=== PATIENT | female | born 1995 | race Caucasian/White ===

== ENCOUNTER 2024-05-08 16:37 | Outpatient (CLI) | payer OTHER, SELFPAY ==
--- NOTE | 2024-05-08 17:04 | PM.OBTRLD ---
Visit Information Visit Information Date of evaluation: 05/08/24 Primary OB Provider: Charity Alonso On-call OB Provider: Charity Alonso Reason for Evaluation: Yes rupture of membranes Comments/Additional reasons for admission: July is a 29 year old at 26w1d. Fell on buttocks stairs yesterday at 1930. Baby has been moving well. No bleeding, changes in vaginal discharge color, but she has been feeling more discharge suddenly so concerned her water broke, and is here to get checked out. Otherwise she has no complaints. Vital Signs Vital Signs: BP 127/67 HR 93 bpm Temp: 36.3 C [facility] Medical History (Updated 05/15/24 @ 17:20 by Charity Alonso CNM, [place]) Kidney stone complicating Pyelonephritis Chronic UTI (urinary tract infection) Surgical History (Updated 05/08/24 @ 17:17 by Charity Alonso CNM, [place]) H/O dilation and curettage H/O lithotripsy Social History (Updated 05/08/24 @ 17:21 by Charity Alonso CNM, [place]) marital status: number of children: 2 household members: spouse and children lives independently: Yes housing: house seatbelt use: always do you feel safe at home: Yes Smoking Status: Never smoker alcohol intake: former substance use type: does not use well-balanced diet: daily or most days daily servings fruits/ve-4 Type(s) of exercise: independent ambulation and irregular exercise Review of Systems Review of Systems Narrative: as mentioned in HPI Evaluation Evaluation Baseline heart rate: 150 Variability: Moderate (11-25) monitor accelerations: Present Monitor Decelerations: Absent Contraction Frequency (minutes): 0 Category of Tracing: Appropriate for gestational age Diagnosis, Plan/Disposition Final Diagnosis (1) NST (non-stress test) reactive: Status: Acute (2) Supervision of normal in third trimester: Status: Acute (3) Intact amniotic membranes: Status: Acute Plan/Disposition Plan: 1. Amnisure done to confirm NOT ruptured. 2. NST performed. 3. Discharge home with precautions, when to call.
== END 2024-05-08 17:49 | disposition home or self-care (01) ==
LOC: LABOR 17:15 → OB 05-09 06:39
PROVIDERS: Referring Provider Advanced Practice Midwife; Visit Provider Advanced Practice Midwife
DX: Z03.71 Encounter for suspected problem with amniotic cavity and membrane ruled out (principal); O26.892 Other specified pregnancy related conditions, second trimester; W18.30XA Fall on same level, unspecified, initial encounter; Z3A.26 26 weeks gestation of pregnancy
CPT/HCPCS: 59025; 84112; G0378; G0379

== ENCOUNTER 2024-10-10 04:05 | Emergency (ER) | payer OTHER, SELFPAY ==
[2024-10-10 04:15] VITALS: BP 123/71; PULSE 78; RESP 16; TEMP 36.9; O2SAT 96
--- NOTE | 2024-10-10 05:52 | PC.NURSE ---
See downtime form for complete patient care flowsheet.
--- NOTE | 2024-10-10 05:55 | ED.ABDPAIN ---
HPI - Abdominal Pain General Chief Complaint: Abdominal Pain Stated Complaint: abdominal pain Time Seen by Provider: 10/10/24 05:54 Source: patient Mode of arrival: Ambulatory History of Present Illness HPI narrative: 29-year-old female patient, otherwise healthy, who complains of moderate to severe epigastric pain that awoke her 1 hour before coming to the ER. She had nausea but no vomiting. No previous symptoms like this. Previous surgeries include laparoscopy for suspected ectopic and D and C to complete a miscarriage. Currently feels better after taking some type of wwqc-aiv-qzhgsls remedies at home which she says was a digestive enzyme. Related Data Allergies Allergy/AdvReac Type Severity Reaction Status Date / Time No Known Drug Allergies Allergy Verified 10/10/24 05:48 Review of Systems Review of Systems ROS Unobtainable: All systems reviewed & are unremarkable except as noted in HPI and below Gastrointestinal Gastrointestinal: Reports as per HPI Patient History Medical History (Updated 10/10/24 @ 05:59 by Kimo Weiss MD) Kidney stone complicating Pyelonephritis Chronic UTI (urinary tract infection) Surgical History (Updated 05/08/24 @ 17:17 by Charity Alonso CNM, [place]) H/O dilation and curettage H/O lithotripsy Social History (Updated 05/08/24 @ 17:21 by Charity Alonso CNM, [place]) marital status: number of children: 2 household members: spouse and children lives independently: Yes housing: house seatbelt use: always do you feel safe at home: Yes alcohol intake: former substance use type: does not use well-balanced diet: daily or most days daily servings fruits/ve-4 Type(s) of exercise: independent ambulation and irregular exercise Exam Initial Vital Signs Initial Vital Signs: Vital Signs Temperature 98.5 F 10/10/24 04:15 Pulse Rate 78 10/10/24 04:15 Respiratory Rate 16 10/10/24 04:15 Blood Pressure 123/71 10/10/24 04:15 Pulse Oximetry 96 10/10/24 04:15 Oxygen Delivery Method Room Air 10/10/24 04:15 Const General: cooperative, healthy appearing, comfortable, well developed and No acute distress Resp Effort & Inspection: normal respiratory effort Auscultation: clear to auscultation bilaterally Cardio Rate: regular rate Rhythm: regular rhythm GI Other: Mild epigastric tenderness but no rebound or guarding. Positive bowel sounds and no distention or masses. Course Orders Ordered: ED Orders 10/10/24 05:00 Complete Blood Count AUTO DIFF Stat Comprehensive Metabolic Panel Stat Lipase Stat Vital Signs Vital signs: Vital Signs - 8 hr 10/10/24 04:15 Temperature 98.5 F Pulse Rate 78 Respiratory Rate 16 Blood Pressure 123/71 Pulse Oximetry 96 Oxygen Delivery Method Room Air MDM - Abdominal Pain Lab Data 10/10/24 05:00 10/10/24 05:00 Labs: Lab Results 10/10/24 Range/Units 05:00 WBC 5.1 (4.5-11.0) X10^3/uL RBC 4.73 (4.0-5.2) X10^6/uL Hgb 13.7 (12.0-16.0) g/dL Hct 40.7 (36-46) % MCV 86.2 (80-100) fL MCH 28.9 (26-34) PG MCHC 33.6 (30-36) % RDW 13.2 (11.6-14.8) % Plt Count 172 (150-400) X10^3/uL Neut % (Auto) 55.4 (50-75) % Lymph % (Auto) 26.2 (25-40) % Haakon % (Auto) 6.0 (3-14) % Eos % (Auto) 11.1 H (2-4) % Baso % (Auto) 1.3 (0-2) % Neut # (Auto) 2800 (0901-0920) /uL Lymph # (Auto) 1300 (7625-6607) /uL Haakon # (Auto) 300 (0-900) /uL Eos # (Auto) 600 H (0-450) /uL Baso # (Auto) 100 (0-100) /uL Sodium 137 (137-145) mmol/L Potassium 3.8 (3.4-5.1) mmol/L Chloride 105 (98-107) mmol/L Carbon Dioxide 23 (22-32) mmol/L BUN 27 H (7-17) mg/dL Creatinine 1.01 (0.52-1.04) mg/dL Estimated GFR > 60 (>60) mL/min BUN/Creatinine Ratio 26.7 H (6-22) Glucose 96 (70-99) mg/dL Calcium 9.0 (8.4-10.2) mg/dL Total Bilirubin 0.4 (0.2-1.3) mg/dL AST 36 (14-36) IU/L ALT 29 (<35) IU/L Alkaline Phosphatase 79 (38-126) U/L Total Protein 7.4 (6.3-8.2) g/dL Albumin 4.5 (3.5-5.0) g/dL Globulin 2.9 (1.7-4.1) g/dL Albumin/Globulin Ratio 1.6 (1.0-2.8) Lipase 90 (23-300) U/L MDM Narrative Medical decision making narrative: Transient epigastric pain which is now resolved with only a home remedy the patient used. Lab work unremarkable and reassuring. Unlikely to be biliary colic with possible. More likely gastritis. Patient given instructions on [id number] meds and follow up with primary care. May need further workup symptoms persist. Return to the ER if worse Discharge Plan Departure Patient Disposition: Home Clinical Impression: Acute epigastric pain Instructions: DI for Gastritis, DI for Abdominal Pain-Adult, DI for Biliary Colic Activity Restrictions/Additional Instructions: Assessment: Epigastric pain with normal lab work. Probable gastritis/peptic ulcer disease. Other possibility is biliary colic Plan: [place] low-fat diet for now. May use [id number] famotidine/Pepcid or omeprazole/Prilosec. Monitor symptoms and follow up with your doctor. If persistent may need further workup such as ultrasound or gastroenterology referral. Return to the ER if worse. Stand Alone Forms: Patient Portal/API
[2024-10-10 05:58] LABS: Add Manual Diff / Slide Review NO; Hematocrit 40.7 % (36-46); Hemoglobin 13.7 g/dL (12.0-16.0); Lymphocytes Absolute Auto 1300 /uL (1100-4500); Mean Corpuscular HGB Conc 33.6 % (30-36); Mean Corpuscular Hemoglobin 28.9 PG (26-34); Mean Corpuscular Volume 86.2 fL (80-100); Platelet Count 172 X10^3/uL (150-400)
[2024-10-10 05:59] LABS: Alanine Aminotransferase 29 IU/L (<35); Albumin 4.5 g/dL (3.5-5.0); Albumin Globulin Ratio 1.6 (1.0-2.8); Alkaline Phosphatase 79 U/L (38-126); Blood Urea Nitrogen 27 mg/dL (7-17); Calcium 9.0 mg/dL (8.4-10.2); Carbon Dioxide 23 mmol/L (22-32); Chloride 105 mmol/L (98-107); Estimated Glomerular Filt Rate > 60 mL/min (>60); Globulin 2.9 g/dL (1.7-4.1); Glucose 96 mg/dL (70-99); HEMOLYSIS < 15 (0-50); Lipase 90 U/L (23-300); Potassium 3.8 mmol/L (3.4-5.1); Sodium 137 mmol/L (137-145); Total Protein 7.4 g/dL (6.3-8.2)
[2024-10-10 06:13] VITALS: BP 112/70; PULSE 81; RESP 15; O2SAT 96
== END 2024-10-10 06:05 | disposition home or self-care (01) ==
LOC: ED 06:24
PROVIDERS: Emergency Provider Emergency Medicine
DX: R10.13 Epigastric pain (principal)
CPT/HCPCS: 36415; 80053; 83690; 85025; 99283

== ENCOUNTER → 2024-11-22 10:13 | Outpatient (CLI) | payer OTHER, SELFPAY ==
[2024-11-22 10:56] LABS: Add Manual Diff / Slide Review NO; Hematocrit 44.5 % (36-46); Hemoglobin 14.7 g/dL (12.0-16.0); Lymphocytes Absolute Auto 2300 /uL (1100-4500); Mean Corpuscular HGB Conc 33.1 % (30-36); Mean Corpuscular Hemoglobin 28.5 PG (26-34); Mean Corpuscular Volume 85.9 fL (80-100); Platelet Count 191 X10^3/uL (150-400)
[2024-11-22 11:05] LABS: HEMOLYSIS < 15 (0-50); Iron 59 ug/dL (37-170)
[2024-11-22 11:06] LABS: Alanine Aminotransferase 20 IU/L (<35); Albumin 4.6 g/dL (3.5-5.0); Albumin Globulin Ratio 1.5 (1.0-2.8); Alkaline Phosphatase 70 U/L (38-126); Blood Urea Nitrogen 21 mg/dL (7-17); Calcium 9.8 mg/dL (8.4-10.2); Carbon Dioxide 30 mmol/L (22-32); Chloride 102 mmol/L (98-107); Estimated Glomerular Filt Rate > 60 mL/min (>60); Globulin 3.0 g/dL (1.7-4.1); Glucose 97 mg/dL (70-99); HEMOLYSIS < 15 (0-50); Potassium 4.2 mmol/L (3.4-5.1); Sodium 139 mmol/L (137-145); Total Protein 7.6 g/dL (6.3-8.2)
[2024-11-22 11:20] LABS: Percent Iron Saturation 19 % (15-50); Total Iron Binding Capacity 310 ug/dL (265-497); Transferrin 279 mg/dL (206-381)
[2024-11-22 11:23] LABS: Free T3, Triiodothyronine Free 4.73 pg/mL (2.77-5.27); Free T4, Direct Thyroxine 1.27 ng/dL (0.78-2.19); Vitamin D 25 Hydroxy (D3) 56.1 ng/mL (30.0-100.0)
[2024-11-22 11:37] LABS: Thyroid Stimulating Hormone 3.04 uIU/mL (0.47-4.68)
[2024-11-22 11:42] LABS: Ferritin 10 ng/mL (6-137)
[2024-11-22 12:13] LABS: Folate 14.0 ng/mL (2.76-20.0); Vitamin B12 719 pg/mL (239-931)
== END ==
PROVIDERS: PCP Student in an Organized Health Care Education/Training Program; Referring Provider Student in an Organized Health Care Education/Training Program; Visit Provider Student in an Organized Health Care Education/Training Program
DX: R42 Dizziness and giddiness (principal)
CPT/HCPCS: 36415; 80053; 82306; 82607; 82728; 82746; 83540; 83550; 84439; 84443; 84481; 85025

== ENCOUNTER → 2024-12-06 09:13 | Outpatient (CLI) | payer OTHER, SELFPAY ==
[2024-12-06 09:48] LABS: Add Manual Diff / Slide Review NO; Hematocrit 41.6 % (36-46); Hemoglobin 13.7 g/dL (12.0-16.0); Lymphocytes Absolute Auto 1900 /uL (1100-4500); Mean Corpuscular HGB Conc 33.0 % (30-36); Mean Corpuscular Hemoglobin 28.2 PG (26-34); Mean Corpuscular Volume 85.4 fL (80-100); Platelet Count 168 X10^3/uL (150-400)
== END ==
PROVIDERS: PCP Student in an Organized Health Care Education/Training Program; Referring Provider Student in an Organized Health Care Education/Training Program; Visit Provider Student in an Organized Health Care Education/Training Program
DX: R79.89 Other specified abnormal findings of blood chemistry (principal); R89.8 Other abnormal findings in specimens from other organs, systems and tissues
CPT/HCPCS: 36415; 85025

== ENCOUNTER → 2024-12-06 09:28 | Outpatient (CLI) | payer OTHER, SELFPAY | LOC: CAR 09:28 | PROVIDERS: PCP Student in an Organized Health Care Education/Training Program; Referring Provider Student in an Organized Health Care Education/Training Program; Visit Provider Student in an Organized Health Care Education/Training Program | DX: R00.2 Palpitations (principal) | CPT/HCPCS: 93246 ==

== ENCOUNTER → 2025-01-18 10:50 | Outpatient (CLI) | payer OTHER, SELFPAY ==
--- NOTE | 2025-01-18 10:52 | DI.CT.S_ITS ---
PROCEDURE: CT KIDNEY URETER BLADDER (KUB)
== END ==
LOC: CT 10:52
PROVIDERS: PCP Student in an Organized Health Care Education/Training Program; Referring Provider Urology; Visit Provider Urology
DX: N20.0 Calculus of kidney (principal); K59.00 Constipation, unspecified; Z87.442 Personal history of urinary calculi; Z98.890 Other specified postprocedural states
CPT/HCPCS: 74176